=== PATIENT | male | born 1985 | race Caucasian/White ===

== ENCOUNTER 2017-06-10 11:06 | Emergency (ER) | payer SELFPAY ==
[2017-06-10] MEDS ORDERED: DIAZEPAM 5 MG TAB PO ONE (11:38)
--- NOTE | 2017-06-10 11:48 | EDPHY ---
H & P Stated Complaint: need social studies department chair? Time Seen by Provider: 06/10/17 11:08 HPI/ROS: This patient admits desire to kill himself. He also admits methamphetamine use over the past 4 days and he is uncertain about whether his paranoid feelings of being pursued by law enforcement are reality or if he is having paranoid psychosis. He came here on foot. He explains that he had a cocaine abuse problem in the past. He stopped using cocaine but motor new girlfriend moved in with her recently in [place] and start using-smoking crystal meth. Last use was yesterday per his report. He also had a 22 oz beer yesterday and smoked hash. He feels that the room that they are renting is bugged by the [employer] and that he is being entrapped. He reports fleeting his rental unit and running away feeling that he was being chased by law enforcement. At some point he lost his shoes. He received ride from a bystander to come to a bar. Eventually made it to a friend's house and [place] and then again paranoid that he was being chased he took shoes and a sweatshirt present in his friend days home and eventually came here on foot for evaluation complaining of cold fingers and toes concerned he might have frostbite and requesting Psychiatric Services. ROS: No recent fevers or chills. HEENT: No complaints pulmonary: No complaints cardiovascular: No chest pain no heart palpitations GI: No complaints Integumentary: No complaints Psychiatric: He admits anxiety, paranoia and suicidal ideation. 10 point ROS is otherwise negative. Source: Patient Exam Limitations: Intoxication - Personal History Current Tetanus Diphtheria and Acellular Pertussis (TDAP): Unsure - Family History Significant Family History: No pertinent family hx - Social History Alcohol Use: Occasionally Drug Use: Marijuana, Other (Crystal meth-last [place] yesterday) Additional Social History: Pain towels is. He has been living with a new girlfriend-Madeline in a rental room in [place]. - Physical Exam Exam: General Appearance: Alert, anxious Eyes: Pupils equal and round no pallor or injection. ENT, Mouth: Mucous membranes moist. Ketone halitosis. Neck: Supple. Respiratory: There are no retractions, lungs are clear to auscultation. Cardiovascular: Regular rate and rhythm. Gastrointestinal: Abdomen is soft and nontender, no masses, bowel sounds normal. Neurological: GCS 15. Skin: Warm and dry, no rashes. Patient has cool pale toes without evidence of tissue necrosis. He maintains cap refill. Musculoskeletal: Neck is supple nontender. Extremities are symmetrical, full range of motion. Psychiatric: Patient has pressured speech with rambling story. He has paranoia and describes hearing persecutory voices. He admits suicidal ideation reporting that"he wants to kill himself 100%". He reported that if he had money he would have gotten a gun. However he lost his wallet. He does have some insight into his paranoia explaining that it is not typical for him. He does remember having an episode of psychotic symptoms when he used cocaine in the past. He feels somewhat similar. But he admits he is not sure which parts of the past 48 hr are reality in which parts are in his mind in terms of being pursued by police-ID is being persecuted etc. DIFFERENTIAL DIAGNOSIS: After history and physical exam differential diagnosis was considered for agitated delirium from drug intoxication, paranoid psychosis , suicidal ideation, dehydration, mild frostbite Constitutional: Initial Vital Signs Temperature (C) 36.8 C 06/10/17 11:13 Heart Rate 111 H 06/10/17 11:13 Respiratory Rate 18 06/10/17 11:13 Blood Pressure 138/96 H 06/10/17 11:13 O2 Sat (%) 95 06/10/17 11:13 O2 Delivery Mode Room Air Allergies/Adverse Reactions: amoxicillin Allergy (Verified 06/10/17 11:54) Penicillins Allergy (Verified 06/10/17 11:55) Medical Decision Making ED Course/Re-evaluation: Valium 5 mg p.o. IV and lab sent Normal saline bolus I discussed the case with Dr. Maribeth Garcia-emergency physician [facility] for transfer for psychiatric evaluation. Discussion: Patient with suicidal ideation and methamphetamine intoxication with symptoms of paranoid psychosis verses agitated delirium from methamphetamine warranting M1 hold which I placed him on and psychiatric evaluation. Labs return after the patient's transfer to [facility] with significant leukocytosis possibly stress demargination. Basic metabolic panel with no significant abnormalities. Departure - Departure Disposition: [facility] ER Clinical Impression: Suicide ideation, Methamphetamine intoxication Condition: Fair Referrals: NONE *PRIMARY CARE P,. [Primary Care Provider] - As per Instructions
[2017-06-10 12:22] LABS: PLATELET COUNT 341 10^3/uL (150-400)
[2017-06-10] MEDS ORDERED: LORazepam 1 MG TAB ONE (13:23)
[2017-06-10 23:50] VITALS: TEMP 98.2
[2017-06-11 07:49] VITALS: BP 109/78; PULSE 78
[2017-06-11 09:14] VITALS: RESP 18; O2SAT 97
== END 2017-06-11 09:13 | disposition still patient (30) ==
LOC: CED 11:06
DX: R45.851 Suicidal ideations (principal); F15.20 Other stimulant dependence, uncomplicated
CPT/HCPCS: 80048-PO; 80305; 85025-PO; G0480